=== PATIENT | female | born 1950 | race African-American/Black ===

== ENCOUNTER 2019-01-19 15:37 | Emergency (ER) | payer OTHER ==
[~2019-01-19] VITALS: Ht 172.7 cm; Wt 109.0 kg
[2019-01-20] MEDS ORDERED: KETOROLAC 60MG/2ML VIAL IM ONE (00:30)
[2019-01-20 03:29] VITALS: BP 191/80
[2019-01-20 03:30] LABS: CLARITY URINE CLOUDY (CLEAR); COLOR URINE YELLOW (YELLOW); KETONES URINE NEGATIVE (NEGATIVE); LEUKOCYTE ESTERASE URINE 3+ (NEGATIVE); NITRITE URINE NEGATIVE (NEGATIVE); OCCULT BLOOD URINE TRACE (NEGATIVE); PROTEIN URINE NEGATIVE (NEGATIVE); SPECIFIC GRAVITY URINE 1.015 (1.005-1.030); UROBILINOGEN URINE 0.2 E.U./dL (0.2-1.0)
== END 2019-01-20 04:04 | disposition home or self-care (01) ==
LOC: ER 16:28
DX: M54.16 Radiculopathy, lumbar region (principal); N39.0 Urinary tract infection, site not specified; E11.9 Type 2 diabetes mellitus without complications; I10 Essential (primary) hypertension; Z88.3 Allergy status to other anti-infective agents; Z88.2 Allergy status to sulfonamides
CPT/HCPCS: 74176; 81003; 87086; 96372; 99284; J1885

== ENCOUNTER 2020-06-18 11:23 | Emergency (ER) | payer BC, OTHER ==
[~2020-06-18] VITALS: Ht 172.7 cm; Wt 130.0 kg
[2020-06-18] MEDS ORDERED: IBUPROFEN 600MG TABLET PO ONE (12:00)
[2020-06-18 13:46] VITALS: BP 151/64
== END 2020-06-18 13:49 | disposition home or self-care (01) ==
LOC: ER 11:23
DX: M17.11 Unilateral primary osteoarthritis, right knee (principal); E11.9 Type 2 diabetes mellitus without complications; I10 Essential (primary) hypertension; Z90.710 Acquired absence of both cervix and uterus; Z88.2 Allergy status to sulfonamides; Z88.3 Allergy status to other anti-infective agents
CPT/HCPCS: 73560; 99283